=== PATIENT | female | born 1940 | race Caucasian/White ===

== ENCOUNTER → 2018-03-14 | Outpatient (CLI) | payer MEDICARE ==
[~2018-03-14] MED LIST: REGADENOSON 0.4 MG/5 ML SYRINGE ONE
== END ==
LOC: CFH 12:04
PROVIDERS: ATTEND Family Medicine
DX: R94.31 Abnormal electrocardiogram [ECG] [EKG] (principal); I51.7 Cardiomegaly; R06.09 Other forms of dyspnea
CPT/HCPCS: 71046; 78452; 93017; A9502; J2785

== ENCOUNTER 2021-01-27 10:35 | Outpatient (CLI) | payer MEDICARE ==
[~2021-01-27 10:35] MED LIST changes: +ASPI-496 PO; +CALC-192 PO; +METF500T17 PO; +PANT40TA6 PO; -REGADENOSON 0.4 MG/5 ML SYRINGE ONE; +SIMV20TA19 PO
[2021-01-27] MEDS ORDERED: LOSA50TA14 PO (11:02)
[2021-01-27] MEDS ORDERED: CHOL200052 PO (11:02)
[2021-01-27 12:22] LABS: ALANINE AMINOTRANSFERASE 21 U/L (12-78); ANION GAP 4 mmol/L (5-15); CALCIUM 9.6 mg/dL (8.5-10.1); CHLORIDE 106 mmol/L (98-107); CREATININE 0.43 mg/dL (0.55-1.02)
[2021-01-27 12:25] LABS: ALKALINE PHOSPHATASE 50 U/L (45-117); BILIRUBIN,TOTAL 0.9 mg/dL (0.2-1.0); TOTAL PROTEIN 6.9 g/dL (6.4-8.2)
== END 2021-01-27 23:59 | disposition home or self-care (01) ==
LOC: STAR 10:35
PROVIDERS: ATTEND Orthopaedic Surgery
DX: Z01.812 Encounter for preprocedural laboratory examination (principal); Z20.822 Contact with and (suspected) exposure to COVID-19; M17.11 Unilateral primary osteoarthritis, right knee
CPT/HCPCS: 36415; 80053; 87081; 93005; U0003

== ENCOUNTER 2021-02-01 09:51 | Observation (INO) | payer MEDICARE ==
[~2021-02-01] VITALS: Ht 154.9 cm; Wt 69.9 kg
[~2021-02-01 09:51] MED LIST changes: +CHOL200052 PO; +EPINEPHRINE 1 MG/ML, 1ML ONE; +FENTANYL PF 250 MCG/5ML ONE; +KETOROLAC 60 MG/2 ML ONE; +LOSA50TA14 PO; +ROPIvacaine/PF 0.2%, 20 ML ONE; +SODIUM CHLORIDE 0.9% 0 ML ONE; +TRANEXAMIC ACID 100 MG/ML, 10ML ONE; +VANCOMYCIN 1,000 MG ONE
[2021-02-01 10:29] VITALS: BP 144/84
[2021-02-01] MEDS ORDERED: LACTATED RINGERS 1,000 ML IV SCH (10:30)
[2021-02-01] MEDS ORDERED: CHLORHEXIDINE 15 ML UDC PO ONE (10:30)
[2021-02-01] MEDS ORDERED: MELOXICAM 15 MG TABLET PO ONE (10:30)
[2021-02-01] MEDS ORDERED: PHENYLEPHRINE 10 MG/ML ONE (12:15)
[2021-02-01] MEDS ORDERED: DEXAMETHASONE 4 MG/ML, 1ML ONE (12:15)
[2021-02-01] MEDS ORDERED: SUCCINYLCHOLINE 20 MG/ML, 10ML ONE (12:32)
[2021-02-01] MEDS ORDERED: GLYCOPYRROLATE 0.2MG/1ML, 5ML ONE (12:32)
[2021-02-01] MEDS ORDERED: ROCURONIUM 10MG/ML,5ML ONE (12:32)
[2021-02-01] MEDS ORDERED: NEOSTIGMINE 1 MG/ML, 10ML ONE (12:32)
[2021-02-01] MEDS ORDERED: CEFAZOLIN 1,000 MG ONE (12:32)
[2021-02-01] MEDS ORDERED: ONDANSETRON 2MG/ML, 2ML ONE ×2 (12:32→15:34)
[2021-02-01] MEDS ORDERED: PROPOFOL 10 MG/ML, 20ML ONE (12:32)
[2021-02-01] MEDS ORDERED: TRANEXAMIC ACID 100 MG/ML, 10ML ONE (12:46)
[2021-02-01] MEDS ORDERED: BUPIVACAINE/PF 0.25% ONE ×2 (12:46→14:02)
[2021-02-01] MEDS ORDERED: hydrALAzine 20 MG/ML, 1ML IV PRN (13:00)
[2021-02-01] MEDS ORDERED: OXYcodone 5 MG/5 ML ORAL.SOL UDC PO PRN (13:00)
[2021-02-01] MEDS ORDERED: METHOCARBAMOL 1,000 MG in DEXTROSE 5% 100 ML IV PRN (13:00)
[2021-02-01] MEDS ORDERED: HYDROmorphone 1 MG/ML, 1ML INJ IVPush PRN (13:00)
[2021-02-01] MEDS ORDERED: LABETALOL 5MG/ML, 20ML IV PRN (13:00)
[2021-02-01] MEDS ORDERED: ACETAMINOPHEN 325 MG TABLET PO PRN (13:00)
[2021-02-01] MEDS ORDERED: HALOPERIDOL 5 MG/ML IV PRN (13:00)
[2021-02-01] MEDS ORDERED: LORazepam 2 MG/ML, 1ML IVPush PRN (13:00)
[2021-02-01] MEDS ORDERED: EPHEDRINE 50 MG/ML, 1ML IVPush PRN (13:00)
[2021-02-01] MEDS ORDERED: HYDROmorphone 1 MG/ML, 1ML INJ ONE ×3 (13:30→15:53)
[2021-02-01] MEDS ORDERED: VANCOMYCIN 1,000 MG ONE (14:13)
[2021-02-01] MEDS ORDERED: OXYcodone 5 MG/5 ML ORAL.SOL UDC ONE (15:15)
[2021-02-01] MEDS ORDERED: FENTANYL PF 100 MCG/2ML ONE (15:15)
[2021-02-01] MEDS: FENTANYL PF 100 MCG/2ML IV PRN ×2 (15:19→15:30)
[2021-02-01] MEDS ORDERED: ONDANSETRON 2MG/ML, 2ML IVPush ONE (16:00)
[2021-02-01] MEDS: KETOROLAC 30 MG/1 ML IV SCH (17:49)
[2021-02-01] MEDS ORDERED: HYDROcodone/APAP 5/325 TABLET PO PRN (18:00)
[2021-02-01] MEDS ORDERED: morphine SULFATE 10 MG/ML, 1ML IV PRN (18:00)
[2021-02-01] MEDS ORDERED: ONDANSETRON 2MG/ML, 2ML IV PRN (18:00)
[2021-02-01] MEDS ORDERED: OXYcodone/APAP 5/325MG TABLET PO PRN (18:00)
[2021-02-01] MEDS ORDERED: DIPHENHYDRAMINE 25 MG CAPSULE PO PRN (18:00)
[2021-02-01 19:03] VITALS: BP 171/89
[2021-02-01] MEDS: LOSARTAN 50MG TABLET PO SCH (20:07)
[2021-02-01] MEDS ORDERED: SIMVASTATIN 20 MG TABLET PO SCH (21:00)
[2021-02-01] MEDS: CEFAZOLIN PMX 2GM/50ML 50 ML IVPB SCH (21:13)
[2021-02-01] MEDS: INSULIN LISPRO 100 UNITS/ML, PEN SQ-INSULIN SCH (21:14)
[2021-02-01 23:01] VITALS: BP 153/74
[2021-02-02] MEDS: KETOROLAC 30 MG/1 ML IV SCH ×2 (02:21→11:14)
[2021-02-02 02:54] VITALS: BP 139/81
[2021-02-02] MEDS: CEFAZOLIN PMX 2GM/50ML 50 ML IVPB SCH (04:32)
[2021-02-02 05:50] LABS: BASOPHILS % (AUTO) 0 % (0-1); EOSINOPHILS % (AUTO) 0 % (1-7); LYMPHOCYTES % (AUTO) 5 % (22-44); MEAN CORPUSCULAR HEMOGLOBIN 30.9 pg (27.0-34.8); MEAN CORPUSCULAR HGB CONC 33.8 g/dL (32.4-35.8); MEAN PLATELET VOLUME 9.7 fL (7.4-10.4); MONOCYTES % (AUTO) 8 % (2-9); NEUTROPHILS % (AUTO) 87 % (42-75); PLATELET COUNT 183 x10^3/uL (130-400); RED BLOOD COUNT 4.11 x10^6/uL (3.82-5.3)
[2021-02-02 05:55] LABS: MD NO
[2021-02-02 05:58] LABS: ANION GAP 6 mmol/L (5-15); CALCIUM 8.3 mg/dL (8.5-10.1); CHLORIDE 102 mmol/L (98-107); CREATININE 0.49 mg/dL (0.55-1.02)
[2021-02-02] MEDS ORDERED: ASPIRIN 81 MG TABLET EC PO SCH ×2 (06:00→09:00)
[2021-02-02 06:15] VITALS: BP 121/51
[2021-02-02] MEDS ORDERED: metFORMIN 500 MG TABLET PO SCH (08:00)
[2021-02-02] MEDS: INSULIN LISPRO 100 UNITS/ML, PEN SQ-INSULIN SCH ×2 (08:11→11:00)
[2021-02-02] MEDS: LOSARTAN 50MG TABLET PO SCH (08:12)
[2021-02-02] MEDS ORDERED: CALCIUM/VITAMIN D3 250-125 TABLET PO SCH (09:00)
[2021-02-02] MEDS ORDERED: CHOLECALCIFEROL 1,000 UNIT TABLET PO SCH (09:00)
== END 2021-02-02 12:00 | disposition home or self-care (01) ==
LOC: OUT 09:51 → 4NE 16:47 → OUT 19:42 → DCLOUNGE 02-02 11:52
PROVIDERS: ADMIT Orthopaedic Surgery; ATTEND Orthopaedic Surgery
DX: M17.11 Unilateral primary osteoarthritis, right knee (principal); E11.9 Type 2 diabetes mellitus without complications; Z96.651 Presence of right artificial knee joint; Z79.899 Other long term (current) drug therapy; Z79.84 Long term (current) use of oral hypoglycemic drugs
CPT/HCPCS: 27447; 36415; 73560; 80048; 82962; 85025; 96365; 96366; 96375; 96376; 97110; 97161; 97165; C1713; C1776; G0378; J0330; J0690; J1100; J1170; J1815; J1885; J2370; J2405; J2704; J2710; J2800; J3010; J3370; J7120; J0171; J2795